=== PATIENT | female | born 1960 | race American Indian/Alaskan Native ===

== ENCOUNTER 2018-04-24 12:47 | Inpatient (IN) | payer BC, OTHER ==
[2018-04-24] MEDS ORDERED: ASPIRIN PO ONE (13:28)
[2018-04-24] MEDS ORDERED: NITROSTAT SL PRN (13:52)
[2018-04-24 14:17] LABS: Basophils # (Auto) 0.1 K/mm3 (0.0-0.1); Basophils % (Auto) 1.2 % (0.0-1.8); Eosinophils # (Auto) 0.2 K/mm3 (0.0-0.4); Eosinophils % (Auto) 4.8 % (0.0-4.3); Hematocrit 38.7 % (30.3-42.9); Hemoglobin 12.4 gm/dl (10.1-14.3); Lymphocytes # (Auto) 1.3 K/mm3 (1.2-5.4); Lymphocytes % (Auto) 29.4 % (13.4-35.0); Mean Corpuscular HGB Conc 32 % (30-34); Mean Corpuscular Hemoglobin 26 pg (28-32); Mean Corpuscular Volume 81 fl (79-97); Monocytes # (Auto) 0.6 K/mm3 (0.0-0.8); Monocytes % (Auto) 13.7 % (0.0-7.3); Platelet Count 271 K/mm3 (140-440); Red Blood Count 4.76 M/mm3 (3.65-5.03); Red Cell Distribution Width 15.4 % (13.2-15.2)
--- NOTE | 2018-04-24 14:26 | Emergency Department Report ---
ED Chest Pain HPI - General Chief Complaint: Dyspnea/Respdistress Stated Complaint: SOB Time Seen by Provider: 04/24/18 13:30 Source: patient, EMS Mode of arrival: Stretcher Limitations: No Limitations - History of Present Illness Initial Comments: Patient presents to the emergency department with a chief complaint of chest pain or shortness of breath that started last night. Patient states she feels like she cannot catch her breath. Patient does cause nausea but denies any vomiting. Also complains of sweating. Patient has a history of hypertension and a CVA in 2017 is still a smoker. MD Complaint: chest pain -: Sudden Onset: during rest Pain Location: substernal Pain Radiation: none Severity: moderate Severity scale (0 -10): 6 Quality: tightness Consistency: constant Improves With: nothing Worsens With: nothing Treatments Prior to Arrival: none - Related Data Home Medications Medication Instructions Recorded Confirmed Last Taken RX: Lisinopril [Zestril TAB] 40 mg PO QDAY 06/07/13 05/23/15 12/07/14 Previous Rx's Medication Instructions Recorded Last Taken Type RX: oxyCODONE /ACETAMINOPHEN 2 tab PO Q6HR PRN #30 tablet 04/27/14 12/07/14 Rx [Percocet 5/325 mg] RX: NIFEdipine [NIFEdipine XL] 60 mg PO QDAY #30 tab.er.24 12/08/14 Unknown Rx Allergies Allergy/AdvReac Type Severity Reaction Status Date / Time No Known Allergies Allergy Verified 11/02/13 12:38 Heart Score - HEART Score History: Moderately suspicious EKG: Non-specific Age: 45-65 Risk factors: 1-2 risk factors Troponin: 1-3x normal limit HEART Score: 5 ED Review of Systems ROS: Stated complaint: SOB Other details as noted in HPI Comment: All other systems reviewed and negative Constitutional: denies: chills, fever Eyes: denies: eye pain, eye discharge, vision change ENT: denies: ear pain, throat pain Respiratory: shortness of breath. denies: cough, wheezing Cardiovascular: chest pain. denies: palpitations Endocrine: no symptoms reported Gastrointestinal: denies: abdominal pain, nausea, diarrhea Genitourinary: denies: urgency, dysuria, discharge Musculoskeletal: denies: back pain, joint swelling, arthralgia Skin: denies: rash, lesions Neurological: denies: headache, weakness, paresthesias Psychiatric: denies: anxiety, depression Hematological/Lymphatic: denies: easy bleeding, easy bruising ED Past Medical Hx - Past Medical History Previous Medical History?: Yes Hx Hypertension: Yes Hx Congestive Heart Failure: No Hx Diabetes: No Hx Headaches / Migraines: Yes Hx Asthma: No Hx COPD: No Additional medical history: sleep apnea - Surgical History Past Surgical History?: Yes Additional Surgical History: tubal ligation. x 1 - Social History Smoking Status: Current Every Day Smoker Substance Use Type: None - Medications Home Medications: Home Medications Medication Instructions Recorded Confirmed Last Taken Type RX: Lisinopril [Zestril TAB] 40 mg PO QDAY 06/07/13 05/23/15 12/07/14 History RX: oxyCODONE /ACETAMINOPHEN 2 tab PO Q6HR PRN #30 tablet 04/27/14 05/23/15 Rx [Percocet 5/325 mg] RX: NIFEdipine [NIFEdipine XL] 60 mg PO QDAY #30 tab.er.24 12/08/14 05/23/15 Unknown Rx ED Physical Exam - General Limitations: No Limitations General appearance: alert, in no apparent distress - Head Head exam: Present: atraumatic, normocephalic - Eye Eye exam: Present: normal appearance, PERRL, EOMI - ENT ENT exam: Present: mucous membranes moist - Neck Neck exam: Present: normal inspection - Respiratory Respiratory exam: Present: normal lung sounds bilaterally. Absent: respiratory distress, wheezes, rales, rhonchi - Cardiovascular Cardiovascular Exam: Present: regular rate, normal rhythm. Absent: systolic murmur, diastolic murmur, rubs, gallop - GI/Abdominal GI/Abdominal exam: Present: soft, normal bowel sounds. Absent: distended, tenderness - Extremities Exam Extremities exam: Present: normal inspection - Back Exam Back exam: Present: normal inspection - Neurological Exam Neurological exam: Present: alert, oriented X3, CN II-XII intact. Absent: motor sensory deficit - Psychiatric Psychiatric exam: Present: normal affect, normal mood - Skin Skin exam: Present: warm, dry, intact, normal color. Absent: rash ED Course Vital Signs 04/24/18 04/24/18 04/24/18 13:13 13:14 13:24 Temperature 98.2 F 98.2 F Pulse Rate 76 76 72 Respiratory 15 15 23 Rate Blood Pressure 190/76 182/68 Blood Pressure 190/76 190/76 [Left] O2 Sat by Pulse 97 97 100 Oximetry 04/24/18 04/24/18 04/24/18 13:30 13:46 13:59 Temperature Pulse Rate 70 68 69 Respiratory 23 20 Rate Blood Pressure 176/76 164/78 164/78 Blood Pressure [Left] O2 Sat by Pulse 97 95 Oximetry 04/24/18 14:01 Temperature Pulse Rate 73 Respiratory 19 Rate Blood Pressure 156/77 Blood Pressure [Left] O2 Sat by Pulse 96 Oximetry GODFREY score - Godfrey Score Age > 65: (0) No Aspirin use within the Past 7 Days: (0) No 3 or more CAD Risk Factors: (1) Yes 2 or more Angina events in past 24 hrs: (0) No Known CAD with more than 50% Stenosis: (0) No Elevated Cardiac Markers: (0) No ST Deviation Greater than 0.5mm: (0) No GODFREY Score: 1 ED Medical Decision Making - Lab Data Result diagrams: 04/24/18 13:41 04/24/18 13:41 - EKG Data EKG shows normal: sinus rhythm Rate: normal - EKG Data Interpretation: LVH, other (V1 and V2 elevation; ST depressions in leads II, III , and aVF ) - Medical Decision Making There was a concern EKG for ST elevation in V1 and V2 with depressions in inferior leads but since the patient has a pre-existing history of LVH cardiology was contacted at 1:38pm for evaluation of EKG. Or telephone call was at 1348 and EKG was sent via text to cardiology at 1356 cardiology stated that EKG was not concerning for STEMI Patient receives aspirin Sublingual nitroglycerin completely relieved her chest pain and shortness of breath Discussed results with patient Critical care attestation.: If time is entered above; I have spent that time in minutes in the direct care of this critically ill patient, excluding procedure time. ED Disposition Clinical Impression: Chest pain Qualifiers: Chest pain type: unspecified Qualified Code(s): R07.9 - Chest pain, unspecified Disposition: OP ADMIT IP TO THIS HOSP Is pt being admited?: Yes Does the pt Need Aspirin: Yes Condition: Fair Instructions: Chest Pain (ED) Time of Disposition: 14:22
[2018-04-24 14:28] LABS: BUN/Creatinine Ratio 12; Blood Urea Nitrogen 12 mg/dL (7-17); Calcium 9.4 mg/dL (8.4-10.2); Hemolysis Index 2
[2018-04-24 14:30] LABS: Alanine Aminotransferase 7 units/L (7-56); Albumin 3.9 g/dL (3.9-5)
[2018-04-24 14:36] LABS: Bilirubin,Direct < 0.2 mg/dL (0-0.2)
--- NOTE | 2018-04-24 15:07 | History and Physical Report ---
History of Present Illness Chief complaint: My chest hurts History of present illness: 57 YO Female with MO, HTN, LUZ, Migraine headache, Nicotine Dependence presents to ED for evaluation. Pt states that she has experienced pain in her chest over the past 1 day with worsening symptoms over the past 6 hours. Pain is 6/10, substernal, crushing in nature, nonradiating, not worsened with exertion, not relieved with rest, relieved with Nitro, associated with shortness of breath and diaphoresis. EMS notified and patient transported to [facility] for further care and evaluation. Pt seen and evaluated in ED and found to have evidence of ACS and diastolic CHF. Pt admitted to telemetry, Cardiology consulted in ED. Pt denies fever, chills, Palpitations, NVD, Syncope, Trauma, BRBPR, Unintentional weight loss, night sweats, bone pain, or recent ill contacts. Past History Past Medical History: hypertension, migraines Past Surgical History: , Other (tubal ligation) Social history: single, smoking. denies: alcohol abuse, prescription drug abuse Family history: hypertension Medications and Allergies Allergies Allergy/AdvReac Type Severity Reaction Status Date / Time No Known Allergies Allergy Verified 11/02/13 12:38 Home Medications Medication Instructions Recorded Confirmed Last Taken Type Lisinopril [Zestril TAB] 40 mg PO QDAY 06/07/13 05/23/15 12/07/14 History oxyCODONE /ACETAMINOPHEN [Percocet 2 tab PO Q6HR PRN #30 tablet 04/27/1412/07/14 Rx 5/325 mg] NIFEdipine [NIFEdipine XL] 60 mg PO QDAY #30 tab.er.24 12/08/14 05/23/15 Unknown Rx Active Meds: Active Medications Nitroglycerin (Nitrostat) 0.4 mg SL .Q5MIN PRN PRN Reason: Chest Pain Last Admin: 04/24/18 13:59 Dose: 0.4 mg Review of Systems Constitutional: no weight loss, no weight gain, no fever, no chills Ears, nose, mouth and throat: no ear pain, no ear discharge, no tinnitis, no decreased hearing, no nose pain, no nasal congestion Breasts: no change in shape, no swelling, no mass Cardiovascular: chest pain, shortness of breath, no claudication, no decreased exercise tolerance Respiratory: no cough, no cough with sputum, no excessive sputum, no hemoptysis , no shortness of breath Gastrointestinal: no nausea, no vomiting, no diarrhea, no constipation Genitourinary Female: no pelvic pain, no flank pain, no menorrhagia, no dysuria , no urinary frequency, no urgency Rectal: no pain, no incontinence, no bleeding Musculoskeletal: no neck stiffness, no neck pain, no shooting arm pain, no arm numbness/tingling, no shooting leg pain, no leg numbness/tingling Integumentary: no rash, no pruritis, no redness, no sores, no wounds Neurological: no transient paralysis, no paralysis, no weakness, no parathesias , no numbness, no tingling, no seizures, no syncope Psychiatric: no anxiety, no memory loss, no change in sleep habits, no sleep disturbances, no insomnia, no hypersomnia, no change in appetite, no change in libido Endocrine: no cold intolerance, no heat intolerance, no polyphagia, no excessive thirst, no polydipsia, no polyuria, no nocturia Hematologic/Lymphatic: no easy bruising, no easy bleeding, no lymphadenopathy, no lymphedema Allergic/Immunologic: no urticaria, no allergic rhinitis, no persistent infections, no anaphylaxis, no angioedema Exam - Constitutional Vitals: Temp Pulse Resp BP Pulse Ox 98.2 F 73 19 156/77 96 04/24/18 13:14 04/24/18 14:01 04/24/18 14:01 04/24/18 14:01 04/24/18 14:01 General appearance: Present: mild distress, obese - EENT Eyes: Present: PERRL ENT: hearing intact, clear oral mucosa - Neck Neck: Present: supple, normal ROM - Respiratory Respiratory effort: normal Respiratory: bilateral: CTA - Cardiovascular Heart Sounds: Present: S1 & S2. Absent: rub, click - Extremities Extremities: pulses symmetrical, No edema Extremity abnormal: edema Peripheral Pulses: within normal limits - Abdominal General gastrointestinal: Present: soft, non-tender, non-distended, normal bowel sounds Female genitourinary: Present: normal - Integumentary Integumentary: Present: clear, warm, dry - Musculoskeletal Musculoskeletal: gait normal, strength equal bilaterally - Psychiatric Psychiatric: appropriate mood/affect, intact judgment & insight - Neurologic Neurologic: CNII-XII intact, moves all extremities Results - Labs CBC & Chem 7: 04/24/18 13:41 04/24/18 13:41 Labs: Abnormal lab results 04/24/18 04/24/18 Range/Units 13:41 13:41 WBC 4.4 L (4.5-11.0) K/mm3 MCH 26 L (28-32) pg RDW 15.4 H (13.2-15.2) % Sandoval % (Auto) 13.7 H (0.0-7.3) % Eos % (Auto) 4.8 H (0.0-4.3) % Sodium 134 L (137-145) mmol/L Glucose 128 H (65-100) mg/dL Assessment and Plan - Patient Problems (1) ACS (acute coronary syndrome) Status: Acute Plan to address problem: Admit to telemetry, serial cardiac enzymes, ekg, telemetry, cardiology consulted in ED, D dimer, CTA chest, morphine, supplemental oxygen, nitro, aspirin (2) Diastolic CHF Status: Acute Qualifiers: Heart failure chronicity: acute Qualified Code(s): I50.31 - Acute diastolic (congestive) heart failure Plan to address problem: Admit to telemetry, echo, cardiology consulted, strict I/O, monitor uop q shift , daily weight, afterload reduction, (3) Nicotine dependence unspecified, with withdrawal Status: Acute Qualifiers: Nicotine product type: cigarettes Qualified Code(s): F17.213 - Nicotine dependence, cigarettes, with withdrawal Plan to address problem: smoking cessation counseling, supportive care (4) Obesity hypoventilation syndrome Status: Acute Plan to address problem: NIPPV, supportive care, supplemental oxygen, nebulizer therapy. (5) DVT prophylaxis Status: Acute Plan to address problem: SCD to BLE while in bed.
[2018-04-24] MEDS ORDERED: SODIUM CHLORIDE FLUSH SYRINGE 10 ML IV PRN ×2 (15:10→15:17)
[2018-04-24] MEDS ORDERED: TYLENOL PO PRN (15:10)
[2018-04-24] MEDS ORDERED: ZOFRAN IV PRN (15:10)
[2018-04-24] MEDS ORDERED: PERCOCET 5/325 PO PRN (15:20)
--- NOTE | 2018-04-24 16:06 | XRay Report ---
FINAL REPORT EXAM: XR CHEST 1V AP HISTORY: SOB/chest pain TECHNIQUE: AP portable view of the chest PRIORS: None. FINDINGS: Lines, tubes, and devices: N/A Lungs and pleura: Trachea is normal in position. Lungs are clear of infiltrate, pleural effusion, vascular congestion, or pneumothorax. Cardiomediastinal silhouette: Heart is upper limits normal in size. Calcification of the aortic arch is noted. Other: Bony structures are intact. IMPRESSION: No acute cardiopulmonary process seen.
--- NOTE | 2018-04-24 17:08 | Cat Scan Report ---
FINAL REPORT EXAM: CT ANGIO CHEST HISTORY: SOB/CP TECHNIQUE: Enhanced CT of the chest at 2.5 mm axial intervals following a pulmonary embolism protocol. Coronal and sagittal imaging were also obtained. Coronal oblique MIP projections were obtained. Contrast: Intravenous contrast given PRIORS: None. FINDINGS: There is no evidence for pulmonary embolism in the main pulmonary artery, right and left pulmonary arteries or their major distributions. However, CT does not exclude distal pulmonary emboli. Otherwise, the lung parenchyma are expanded and clear with no evidence for parenchymal nodules, infiltrates, congestion, or pleural effusion. There is no evidence for mediastinal, hilar, or axillary adenopathy. Cardiovascular structures are within normal limits. No evidence for ventricular chamber enlargement is seen. There is a normal variant in vascular anatomy with the left common carotid artery originating from the innominate artery rather than the aortic arch. Images through the lung bases include the upper abdomen which show no abnormalities of the visualized abdominal viscera. Bony structures demonstrate no focal abnormalities. IMPRESSION: No evidence for pulmonary embolism. Negative CT of the chest.
[2018-04-24] MEDS: PROCARDIA XL PO SCH (21:44)
[2018-04-24] MEDS: SODIUM CHLORIDE FLUSH SYRINGE 10 ML IV SCH (21:45)
[2018-04-25] MEDS ORDERED: APRESOLINE IV PRN (01:12)
[2018-04-25] MEDS ORDERED: LEXISCAN IV ONE ×2 (08:24→08:27)
[2018-04-25] MEDS ORDERED: TYLENOL ONE (08:55)
[2018-04-25] MEDS ORDERED: PROCARDIA XL PO SCH (10:00)
[2018-04-25] MEDS ORDERED: ZESTRIL PO SCH (10:00)
[2018-04-25] MEDS ORDERED: HALFPRIN EC PO SCH (10:00)
--- NOTE | 2018-04-25 10:39 | Consultation ---
History of Present Illness Consult date: 04/25/18 Requesting physician: SHAYLA WAHL Consult reason: chest pain History of present illness: The pt is a 57 YO female with a past medical history significant for HTN, CVA and tobacco use. She is previously unknown to our practice. She presented with complaints of chest pain for 2 days with worsening for approx 6 hours prior to arrival. She describes the pain as an intermittent, midsternal pressure which has no clear aggravating or alleviating factors. The pain was associated with some SOB. She denies any palpitations, n/v, diaphoresis, dizziness or syncope. She denies any prior cardiac issues, including CAD, AMI or HF. Past History Past Medical History: hypertension, migraines, stroke Past Surgical History: , Other (tubal ligation) Social history: single, smoking. denies: alcohol abuse, prescription drug abuse Family history: hypertension Medications and Allergies Allergies Allergy/AdvReac Type Severity Reaction Status Date / Time No Known Allergies Allergy Verified 11/02/13 12:38 Home Medications Medication Instructions Recorded Confirmed Last Taken Type Lisinopril [Zestril TAB] 40 mg PO QDAY 06/07/13 04/24/18 12/07/14 History Aspirin [Aspirin TAB] 325 mg PO QDAY 04/24/18 04/24/18 Unknown History AtorvaSTATin [Lipitor] 10 mg PO QHS 04/24/18 04/24/18 Unknown History NIFEdipine [Nifedipine ER] 30 mg PO DAILY 04/24/18 04/24/18 Unknown History traZODone [Desyrel] 50 mg PO QHS 04/24/18 04/24/18 Unknown History Active Meds: Active Medications Acetaminophen (Tylenol) 650 mg PO Q4H PRN PRN Reason: Pain MILD(1-3)/Fever >100.5/JEAN Last Admin: 04/25/18 08:53 Dose: 650 mg Aspirin (Halfprin Ec) 81 mg PO QDAY LUISA Atorvastatin Calcium (Lipitor) 40 mg PO QHS LUISA Hydralazine HCl (Apresoline) 5 mg IV Q6H PRN PRN Reason: francoise blood pressure Last Admin: 04/25/18 01:35 Dose: 5 mg Lisinopril (Zestril) 40 mg PO QDAY LUISA Nifedipine (Procardia Xl) 60 mg PO QDAY LUISA Nifedipine (Procardia Xl) 60 mg PO QDAY [facility] Last Admin: 04/24/18 21:44 Dose: 60 mg Nitroglycerin (Nitrostat) 0.4 mg SL .Q5MIN PRN PRN Reason: Chest Pain Last Admin: 04/24/18 13:59 Dose: 0.4 mg Ondansetron HCl (Zofran) 4 mg IV Q8H PRN PRN Reason: Nausea And Vomiting Oxycodone/Acetaminophen (Percocet 5/325) 2 tab PO Q6HR PRN PRN Reason: Pain Sodium Chloride (Sodium Chloride Flush Syringe 10 Ml) 10 ml IV BID [facility] Last Admin: 04/24/18 21:45 Dose: 10 ml Sodium Chloride (Sodium Chloride Flush Syringe 10 Ml) 10 ml IV PRN PRN PRN Reason: LINE FLUSH Sodium Chloride (Sodium Chloride Flush Syringe 10 Ml) 10 ml IV PRN PRN PRN Reason: LINE FLUSH Review of Systems Constitutional: no weight loss, no weight gain, no fever, no chills, no sweats Ears, nose, mouth and throat: no ear pain, no nose pain, no sinus pressure, no sinus pain Cardiovascular: chest pain, shortness of breath, high blood pressure, no orthopnea, no palpitations, no rapid/irregular heart beat, no edema, no syncope , no lightheadedness, no dyspnea on exertion, no leg edema Respiratory: shortness of breath, no cough, no dyspnea on exertion, no congestion, no wheezing, no pain on inspiration Gastrointestinal: no abdominal pain, no nausea, no vomiting, no diarrhea, no constipation, no change in bowel habits Genitourinary Female: no pelvic pain, no flank pain, no dysuria, no urinary frequency, no urgency Musculoskeletal: no neck stiffness, no neck pain, no shooting arm pain, no arm numbness/tingling, no low back pain, no shooting leg pain, no leg numbness/ tingling, no redness of joints Integumentary: no rash, no pruritis, no redness, no sores, no wounds Neurological: no head injury, no paralysis, no weakness, no parathesias, no numbness, no tingling, no seizures, no syncope Psychiatric: no anxiety Endocrine: no cold intolerance, no heat intolerance Hematologic/Lymphatic: no easy bruising, no easy bleeding, no lymphadenopathy Allergic/Immunologic: no urticaria, no wheezing Physical Examination Vital Signs Temp Pulse Resp BP Pulse Ox 98.2 F 76 15 190/76 97 04/24/18 13:13 04/24/18 13:13 04/24/18 13:13 04/24/18 13:13 04/24/18 13:13 General appearance: no acute distress HEENT: Positive: PERRL, Normocephaly, Mucus Membranes Moist Neck: Positive: neck supple, trachea midline Cardiac: Positive: Reg Rate and Rhythm, S1/S2 Lungs: Positive: clear to auscultation Neuro: Positive: Grossly Intact, Cranial Nerve 2-12 Intact Abdomen: Positive: Soft. Negative: Tender Skin: Positive: Clear. Negative: Rash, Wound Musculoskeletal: No Fluid Collection, No Pain, Normal Range of Motion Extremities: Absent: edema Results 04/24/18 13:41 04/24/18 13:41 Cardiac Enzymes 04/24/18 Range/Units 13:45 AST 10 (5-40) units/L CBC 04/24/18 Range/Units 13:41 WBC 4.4 L (4.5-11.0) K/mm3 RBC 4.76 (3.65-5.03) M/mm3 Hgb 12.4 (10.1-14.3) gm/dl Hct 38.7 (30.3-42.9) % Plt Count 271 (140-440) K/mm3 Lymph # 1.3 (1.2-5.4) K/mm3 [place] # 0.6 (0.0-0.8) K/mm3 Eos # 0.2 (0.0-0.4) K/mm3 Baso # 0.1 (0.0-0.1) K/mm3 Comprehensive Metabolic Panel 04/24/18 04/24/18 Range/Units 13:41 13:45 Sodium 134 L (137-145) mmol/L Potassium 4.0 (3.6-5.0) mmol/L Chloride 100.3 (98-107) mmol/L Carbon Dioxide 24 (22-30) mmol/L BUN 12 (7-17) mg/dL Creatinine 1.0 (0.7-1.2) mg/dL Glucose 128 H (65-100) mg/dL Calcium 9.4 (8.4-10.2) mg/dL Direct Bilirubin < 0.2 (0-0.2) mg/dL Indirect Bilirubin 0.1 mg/dL AST 10 (5-40) units/L ALT 7 (7-56) units/L Alkaline Phosphatase 47 (35-129) units/L Total Protein 7.2 (6.3-8.2) g/dL Albumin 3.9 (3.9-5) g/dL - Imaging and Cardiology EKG: report reviewed, image reviewed EKG interpretations - Telemetry EKG Rhythm: Sinus Rhythm - EKG Sinus rhythms and dysrhythmias: sinus rhythm Assessment and Plan DDimer elevated - chest CTA negative for PE. S/p lexiscan MPI stress test this AM which was negative. Can consider echo as OP. Recommend further optimization of anti-hypertensive regimen per primary. Pt may discharge home from cardiology standpoint. Recommend follow up in our office with Dr. Hernandes within 2 weeks of hospital discharge ([phone]). The patient has been seen in conjunction with Dr. Hernandes who agrees with the assessment and plan of care. - Patient Problems (1) Chest pain Current Visit: Yes Status: Acute Qualifiers: Chest pain type: unspecified Qualified Code(s): R07.9 - Chest pain, unspecified (2) Uncontrolled hypertension Current Visit: Yes Status: Chronic (3) History of CVA (cerebrovascular accident) Current Visit: Yes Status: Chronic (4) Tobacco use Current Visit: Yes Status: Chronic
[2018-04-25] MEDS: PROCARDIA XL PO SCH (10:51)
[2018-04-25] MEDS: SODIUM CHLORIDE FLUSH SYRINGE 10 ML IV SCH (12:53)
--- NOTE | 2018-04-25 13:36 | Discharge Summary ---
Providers - Providers Date of Admission: 04/24/18 15:11 Date of discharge: 04/25/18 Attending physician: CALVIN ARREDONDO 04/24/18 Consult to Cardiac Rehabilitation [CONS] Routine Reason For Exam: Phase I 04/24/18 15:17 Consult to Cardiology [CONS] Routine Consulting Provider: JOSE JUAN CALLAHAN Reason For Exam: acs Primary care physician: MACHINE [employer]ICE Hospitalization Condition: Fair Hospital course: The pt is a 57 YO female with a past medical history significant for HTN, CVA and tobacco use presented with complaints of chest pain for 2 days with worsening for approx 6 hours prior to arrival. her DDimer elevated - chest CTA negative for PE. S/p lexiscan MPI stress test this AM which was negative. She had further optimization of anti-hypertensive regimen . Pt was cleared for discharge home from cardiology standpoint. She was Recommend to follow up in with Dr. Hernandes within 2 weeks of hospital discharge ([phone]). Discharge diagnosis; (1) Chest pain, likely GERD Current Visit: Yes Status: Acute Qualifiers: Chest pain type: unspecified Qualified Code(s): R07.9 - Chest pain, unspecified (2) Uncontrolled hypertension Current Visit: Yes Status: Chronic (3) History of CVA (cerebrovascular accident) Current Visit: Yes Status: Chronic (4) Tobacco use Current Visit: Yes Status: Chronic (5) Sleep apnea on CPAP Current Visit: Yes Status: Chronic Disposition: DC-01 TO HOME OR SELFCARE Time spent for discharge: 34 minutes Core Measure Documentation - Core Measures Any of the following diagnoses?: none Exam - Constitutional Vitals: Temp Pulse Resp BP Pulse Ox 97.5 F L 80 16 169/70 100 04/25/18 05:14 04/25/18 08:58 04/25/18 09:52 04/25/18 08:58 04/25/18 05:14 General appearance: Present: no acute distress, obese - EENT Eyes: Present: PERRL ENT: hearing intact, clear oral mucosa - Neck Neck: Present: supple, normal ROM - Respiratory Respiratory effort: normal Respiratory: bilateral: CTA - Cardiovascular Heart Sounds: Present: S1 & S2. Absent: rub, click - Extremities Extremities: pulses symmetrical, No edema Peripheral Pulses: within normal limits - Abdominal General gastrointestinal: Present: soft, non-tender, non-distended, normal bowel sounds - Integumentary Integumentary: Present: clear, warm, dry - Musculoskeletal Musculoskeletal: gait normal, strength equal bilaterally - Psychiatric Psychiatric: appropriate mood/affect, intact judgment & insight - Neurologic Neurologic: CNII-XII intact, moves all extremities Plan Activity: advance as tolerated Weight Bearing Status: Weight Bear as Tolerated Diet: low fat Follow up with: PRIMARY CARE, [Primary Care Provider] - 3-5 Days Prescriptions: AtorvaSTATin [Lipitor] 40 mg PO QHS #30 tablet hydrALAZINE [Apresoline TAB] 50 mg PO Q8HR #90 tablet NIFEdipine XL [Procardia Xl] 60 mg PO QDAY #30 tablet Pantoprazole [Protonix] 40 mg PO QDAY #30 tablet
[2018-04-25] MEDS ORDERED: ASPIRIN PO SCH (14:00)
[2018-04-25] MEDS ORDERED: APRESOLINE PO SCH (15:00)
[2018-04-25 17:13] VITALS: BP 155/80
[2018-04-25] MEDS ORDERED: DESYREL PO SCH (22:00)
--- NOTE | 2018-04-25 23:13 | Treadmill Report ---
NUCLEAR CARDIAC IMAGING REPORT INDICATION FOR PROCEDURE: Chest pain. Informed consent was obtained. Vasodilator stress was achieved with the intravenous administration of 0.4 mg of Lexiscan per protocol. Rest and stress nuclear cardiac imaging were performed following the intravenous administration of 10 and 28 mCi of technetium 99m Myoview per protocol. Images were obtained in a 180-degree arc from 45 degrees CARBALLO to 45 degrees LPO. After data acquisition and reconstruction, the images were processed and reoriented into the vertical long, horizontal long, and horizontal short axis slices. A polar color map of the horizontal short axis slices was generated and reviewed. The rotating planar images reviewed in cinematic format on the computer console. Gated SPECT imaging demonstrates a post-stress left ventricular ejection fraction of 67% with normal wall motion. Myocardial perfusion imaging demonstrates no significant cavity change between stress and rest. No significant stress-induced reversible perfusion defects are seen. Nuclear cardiac imaging demonstrates grossly normal post-stress left ventricular systolic function with no significant evidence for myocardial ischemia or necrosis. JOB# [id number] NAYELY/MATT
== END 2018-04-25 21:45 | disposition home or self-care (01) | DRG 391 ==
LOC: ED 12:47 → 4A 15:11
PROVIDERS: ADMIT Internal Medicine; ATTEND Internal Medicine
PROC: 5A09357 Assistance with Respiratory Ventilation, Less than 24 Consecutive Hours, Continuous Positive Airway Pressure (ICD-10-PCS; principal; 2018-04-24)
DX: K21.9 Gastro-esophageal reflux disease without esophagitis (principal); I50.31 Acute diastolic (congestive) heart failure; I24.9 Acute ischemic heart disease, unspecified; Z68.41 Body mass index [BMI] 40.0-44.9, adult; F17.213 Nicotine dependence, cigarettes, with withdrawal; E66.2 Morbid (severe) obesity with alveolar hypoventilation; I11.0 Hypertensive heart disease with heart failure; G47.33 Obstructive sleep apnea (adult) (pediatric); G43.909 Migraine, unspecified, not intractable, without status migrainosus; Z86.73 Personal history of transient ischemic attack (TIA), and cerebral infarction without residual deficits; Z99.81 Dependence on supplemental oxygen; Z98.51 Tubal ligation status; Z82.49 Family history of ischemic heart disease and other diseases of the circulatory system; Z79.82 Long term (current) use of aspirin; Z79.899 Other long term (current) drug therapy; Z71.6 Tobacco abuse counseling
CPT/HCPCS: 36415; 71045; 71275; 78452; 80048; 80074; 83880; 84484; 85025; 85379; 93005; 93010; 93017; 93306; 94660; A9502; J0360; J2785; Q9967

== ENCOUNTER 2019-04-25 18:18 | Emergency (ER) | payer MEDICAID, SELFPAY ==
--- NOTE | 2019-04-25 18:35 | Event Note ---
ED Screening Note Date of service: 04/25/19 Time: 18:31 ED Screening Note: This is a 58 y.o. F. that presents to the ER with anxiety and headache. PMH HTN Patient states she haven't taken medication today. Current smoker This initial assessment/diagnostic orders/clinical plan/treatment(s) is/are subject to change based on patients health status, clinical progression and re- assessment by fellow clinical providers in the ED. Further treatment and workup at subsequent clinical providers discretion. Patient/guardian urged not to elope from the ED as their condition may be serious if not clinically assessed and managed. Initial orders include: Labs
[2019-04-25 19:28] LABS: Basophils # (Auto) 0.1 K/mm3 (0.0-0.1); Eosinophils # (Auto) 0.2 K/mm3 (0.0-0.4); Eosinophils % (Auto) 3.6 % (0.0-4.3); Hematocrit 37.6 % (30.3-42.9); Hemoglobin 12.5 gm/dl (10.1-14.3); Lymphocytes # (Auto) 1.9 K/mm3 (1.2-5.4); Lymphocytes % (Auto) 31.2 % (13.4-35.0); Mean Corpuscular HGB Conc 33 % (30-34); Mean Corpuscular Volume 82 fl (79-97); Monocytes # (Auto) 0.8 K/mm3 (0.0-0.8); Monocytes % (Auto) 13.3 % (0.0-7.3); Platelet Count 282 K/mm3 (140-440); Red Blood Count 4.58 M/mm3 (3.65-5.03)
[2019-04-25 19:49] LABS: BUN/Creatinine Ratio 12; Blood Urea Nitrogen 12 mg/dL (7-17); Calcium 9.5 mg/dL (8.4-10.2); Hemolysis Index 11
--- NOTE | 2019-04-25 23:42 | Cat Scan Report ---
CT HEAD WITHOUT CONTRAST INDICATION: headache TECHNIQUE: Axial slices were obtained through the head. Coronal and sagittal reformatted images were obtained. COMPARISON: CT scan dated 04/27/2014 FINDINGS: There is no intracranial hemorrhage or extra-axial fluid collection. Ventricles, basilar cisterns, an d sulci appear within normal limits for age. There is no mass lesion or midline shift. No acute ravinder torial infarct is identified. There is microangiopathic change in the periventricular white matter. S mall calcifications are noted in the right basal ganglia unchanged from previous study. Bone windows demonstrate no acute osseous abnormality. There is an air-fluid level in the left aspect of the sphenoid sinus and there is opacification of the right ethmoid air cell. TECHNIQUE: All CT scans at this facility use dose modulation, iterative reconstruction, automated ex posure control, weight based dosing, when appropriate, to reduce radiation dose to as low as reasonab ly achievable. IMPRESSION: 1. No intracranial hemorrhage is seen. There is no mass effect. There is sphenoid and ethmoid air itzel l sinus disease. There is microangiopathic change. Signer Name: rEick Bautista MD Signed: 04/25/2019 11:38 PM Workstation Name: [id number]
[2019-04-26 00:10] VITALS: BP 201/98
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
== END 2019-04-26 01:28 | disposition home or self-care (01) ==
LOC: ED 18:18
DX: F41.9 Anxiety disorder, unspecified (principal); R51 Headache; I10 Essential (primary) hypertension; V49.49XA Driver injured in collision with other motor vehicles in traffic accident, initial encounter; Y93.89 Activity, other specified; Y92.488 Other paved roadways as the place of occurrence of the external cause; Y99.8 Other external cause status
CPT/HCPCS: 36415; 70450; 80048; 85025

== ENCOUNTER 2019-04-26 18:04 | Emergency (ER) | payer MEDICAID ==
[2019-04-26 18:17] VITALS: BP 196/86
--- NOTE | 2019-04-26 18:22 | Event Note ---
ED Screening Note Date of service: 04/26/19 Time: 18:20 ED Screening Note: This is a 58 y.o. F. that presents to the ER with headache and elevated blood pressure. Patient states she took blood pressure medicine and continue to have the same symptoms. Reports is better than yesterday. Denies visual changes, chest pain, dizziness, or palpitations. This initial assessment/diagnostic orders/clinical plan/treatment(s) is/are subject to change based on patients health status, clinical progression and re- assessment by fellow clinical providers in the ED. Further treatment and workup at subsequent clinical providers discretion. Patient/guardian urged not to elope from the ED as their condition may be serious if not clinically assessed and managed. Initial orders include:
== END 2019-04-26 20:50 | disposition left against medical advice (07) ==
LOC: ED 18:04
DX: R51 Headache (principal); R03.0 Elevated blood-pressure reading, without diagnosis of hypertension; Z53.21 Procedure and treatment not carried out due to patient leaving prior to being seen by health care provider

== ENCOUNTER 2019-05-20 18:01 | Emergency (ER) | payer MEDICAID ==
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
== END 2019-05-20 22:42 | disposition home or self-care (01) ==
LOC: ED 18:01
DX: L03.113 Cellulitis of right upper limb (principal)
CPT/HCPCS: 99281

== ENCOUNTER 2019-12-18 00:48 | Observation (INO) | payer MEDICARE ==
[2019-12-18] MEDS ORDERED: MORPHINE 4 MG/1 ML INJ IV ONE (01:09)
[2019-12-18] MEDS ORDERED: dexAMETHasone 4 MG/ML VIAL IV ONE (01:09)
[2019-12-18] MEDS ORDERED: diphenhydrAMINE 50 MG/ML VIAL IV ONE (01:09)
[2019-12-18] MEDS ORDERED: ONDANSETRON 4 MG/2 ML INJ IV ONE (01:09)
[2019-12-18] MEDS ORDERED: SODIUM CHLORIDE 0.9% 1000 ML 1,000 ML IV ONE (01:09)
--- NOTE | 2019-12-18 01:11 | Emergency Department Report ---
ED Headache HPI - General Chief Complaint: Headache Stated Complaint: MIGRAINE Time Seen by Provider: 12/18/19 01:08 Source: patient Exam Limitations: no limitations - History of Present Illness Initial Comments: Patient is a 59-year-old female that presents emergency room with complaints of a migraine. Patient states that her migraine started yesterday. Patient states her pain is worsening. States that this feels like a migraine but the pain is more intense. Patient states she is having light sensitivity. Patient dates she is having an aura and noise sensitivity. Patient states the pain is a 10 out of 10. Patient states the pain is worse with movement and better with rest. Patient denies neck stiffness. Patient denies fever and chills. Patient denies blurry vision. Patient denies dizziness. Patient denies chest pain or shortness of breath. Patient denies recent travel. Patient denies recent international travel. Patient denies exposure to the novel coronavirus. Patient denies sick contacts. Patient denies fever and chills. Patient denies cough. Patient denies diarrhea. Patient denies coming in contact with anybody with symptoms of the novel coronavirus. Timing/Duration: 24 hours Quality: severe, throbbing Head Injury Location: frontal Recent Head Trauma: chronic headaches Modifying Factors: improves with: exposure to light, rest, other (Sound sensitivity) Associated Symptoms: denies: confusion, fatigue, facial pain, fever/chills, flushing, loss of consciousness, nausea/vomiting, nasal congestion, nasal drainage, numbness in legs/feet, rash, seizures, sinus infection, stiff neck, vision changes, weakness Allergies/Adverse Reactions: Allergies No Known Allergies Allergy (Verified 04/26/19 18:26) Home Medications: Ambulatory Orders lisinopriL [Zestril TAB] 40 mg PO QDAY 06/07/13 Aspirin 325 mg PO QDAY 04/24/18 traZODone [Desyrel] 50 mg PO QHS 04/24/18 AtorvaSTATin [Lipitor] 40 mg PO QHS #30 tablet 04/25/18 NIFEdipine XL [Procardia Xl] 60 mg PO QDAY #30 tablet 04/25/18 Pantoprazole [Protonix] 40 mg PO QDAY #30 tablet 04/25/18 hydrALAZINE [Apresoline TAB] 50 mg PO Q8HR #90 tablet 04/25/18 Sulfamethoxazole/Trimethoprim [Bactrim DS TAB] 1 each PO BID 7 Days #14 tablet 05/20/19 predniSONE [Deltasone] 50 mg PO QDAY #5 tab 05/20/19 traMADoL [Ultram] 50 mg PO Q6HR PRN #10 tablet 05/20/19 ED Review of Systems ROS: Stated complaint: MIGRAINE Other details as noted in HPI Constitutional: denies: chills, fever Eyes: denies: eye pain, eye discharge, vision change ENT: denies: ear pain, throat pain Respiratory: denies: cough, shortness of breath, wheezing Cardiovascular: denies: chest pain, palpitations Endocrine: no symptoms reported Gastrointestinal: denies: abdominal pain, nausea, diarrhea Genitourinary: denies: urgency, dysuria, discharge Musculoskeletal: denies: back pain, joint swelling, arthralgia Skin: denies: rash, lesions Neurological: headache. denies: weakness, paresthesias Psychiatric: denies: anxiety, depression Hematological/Lymphatic: denies: easy bleeding, easy bruising ED Past Medical Hx - Past Medical History Previous Medical History?: Yes Hx Hypertension: Yes Hx Congestive Heart Failure: No Hx Diabetes: No Hx Headaches / Migraines: Yes Hx Asthma: No Hx COPD: No Additional medical history: sleep apnea - Surgical History Past Surgical History?: Yes Additional Surgical History: tubal ligation. x 1 - Family History Family history: no significant - Social History Smoking Status: Current Every Day Smoker Substance Use Type: Alcohol - Medications Home Medications: Home Medications Medication Instructions Recorded Confirmed Last Taken Type lisinopriL [Zestril TAB] 40 mg PO QDAY 06/07/13 04/24/18 12/07/14 History Aspirin 325 mg PO QDAY 04/24/18 04/24/18 Unknown History traZODone [Desyrel] 50 mg PO QHS 04/24/18 04/24/18 Unknown History AtorvaSTATin [Lipitor] 40 mg PO QHS #30 tablet 04/25/18 Unknown Rx NIFEdipine XL [Procardia Xl] 60 mg PO QDAY #30 tablet 04/25/18 Unknown Rx Pantoprazole [Protonix] 40 mg PO QDAY #30 tablet 04/25/18 Unknown Rx hydrALAZINE [Apresoline TAB] 50 mg PO Q8HR #90 tablet 04/25/18 Unknown Rx Sulfamethoxazole/Trimethoprim 1 each PO BID 7 Days #14 tablet 05/20/19 Unknown Rx [Bactrim DS TAB] predniSONE [Deltasone] 50 mg PO QDAY #5 tab 05/20/19 Unknown Rx traMADoL [Ultram] 50 mg PO Q6HR PRN #10 tablet 05/20/19 Unknown Rx ED Physical Exam - General Limitations: No Limitations General appearance: alert, in no apparent distress - Head Head exam: Present: atraumatic, normocephalic - Eye Eye exam: Present: normal appearance, PERRL Pupils: Present: normal accommodation - ENT ENT exam: Present: mucous membranes moist - Neck Neck exam: Present: normal inspection - Respiratory Respiratory exam: Present: normal lung sounds bilaterally. Absent: respiratory distress - Cardiovascular Cardiovascular Exam: Present: regular rate, normal rhythm. Absent: systolic murmur, diastolic murmur, rubs, gallop - GI/Abdominal GI/Abdominal exam: Present: soft, normal bowel sounds - Extremities Exam Extremities exam: Present: normal inspection - Back Exam Back exam: Present: normal inspection - Neurological Exam Neurological exam: Present: alert, oriented X3 - Psychiatric Psychiatric exam: Present: normal affect, normal mood - Skin Skin exam: Present: warm, dry, intact, normal color. Absent: rash ED Course Vital Signs 12/18/19 12/18/19 12/18/19 00:54 01:08 01:16 Temperature 98.1 F Pulse Rate 82 80 81 Respiratory 18 20 14 Rate Blood Pressure 232/150 266/129 Blood Pressure [Left] O2 Sat by Pulse 100 100 100 Oximetry 12/18/19 12/18/19 12/18/19 01:32 02:48 02:50 Temperature Pulse Rate 79 Respiratory 16 16 Rate Blood Pressure 266/129 Blood Pressure 263/127 [Left] O2 Sat by Pulse 99 95 100 Oximetry 12/18/19 12/18/19 12/18/19 03:00 03:01 03:16 Temperature Pulse Rate 78 79 92 H Respiratory 21 22 Rate Blood Pressure 263/127 263/127 237/102 Blood Pressure [Left] O2 Sat by Pulse 99 100 Oximetry 12/18/19 12/18/19 12/18/19 03:52 04:13 04:27 Temperature Pulse Rate 109 H 89 85 Respiratory 21 Rate Blood Pressure 204/91 204/95 237/102 Blood Pressure [Left] O2 Sat by Pulse 100 Oximetry - Reevaluation(s) Reevaluation #1: Patient's blood pressure still significantly elevated. Patient states she is out of her blood pressure medications. Patient was given 20 mg hydralazine. 12/18/19 02:53 Reevaluation #2: Patient's blood pressure still elevated. Patient will be given clonidine and Lopressor. 12/18/19 03:24 Reevaluation #3: Blood pressure still extremely elevated and patient is still having a headache. Patient will be placed on a nicardipine drip. 12/18/19 04:27 Reevaluation #4: I discussed all results with patient. I discussed plan of care with patient. Patient agrees with plan of care and admission. Patient to be admitted to the hospitalist service. Patient resting in bed. Patient has already received clonidine, Lopressor, hydralazine and her blood pressure is currently 228/107. Patient was will be placed on nicardipine drip 12/18/19 04:36 - Consultations Consultation #1: Hospitalist consulted for admission. Hospitalist to admit patient. 12/18/19 04:36 ED Medical Decision Making - Lab Data Result diagrams: 12/18/19 01:25 12/18/19 01:25 - Radiology Data Radiology results: report reviewed CT HEAD WITHOUT CONTRAST INDICATION: MAIN: Headache hypertension TECHNIQUE: Axial slices were obtained through the head. Coronal and sagittal reformatted images were obtained. COMPARISON: 04/25/2019 FINDINGS: There is no intracranial hemorrhage or extra-axial fluid collection. Ventricles, basilar cisterns, and sulci appear within normal limits for age. There is no mass lesion or midline shift. No acute territorial infarct is identified. There is microangiopathic change in the periventricular white matter which appears stable. Small lacunar infarcts are noted in the thalami Bone windows demonstrate no acute osseous abnormality. Mucous retention cyst is noted in the sphenoid sinus there is mild mucosal thickening in a few ethmoid air cells. TECHNIQUE: All CT scans at this facility use dose modulation, iterative reconstruction, automated exposure control, weight based dosing, when appropriate, to reduce radiation dose to as low as reasonably achievable. IMPRESSION: 1. No acute intracranial abnormality. There is microangiopathic change. - Medical Decision Making Patient is a 59-year-old female that presents emergency room with complaints of a severe headache and migraine. Patient's migraine pain was worse than her no rmal migraines. Patient had a CTA done due to her severe headache and it was negative for acute finding. Patient's blood pressure also found to be elevated. Patient was given multiple blood pressure medications and her blood pressures continue to be high. Patient was then placed on a nicardipine drip which improved her blood pressure. Patient's was given hydralazine, clonidine, Lopressor and her blood pressure remained high. Patient's labs are unremarkable except for a mild renal insufficiency. Patient admitted to the hospitalist service. - Differential Diagnosis Hypertensive emergency, uncontrolled bp, migraine, intractable headache Critical Care Time: Yes Critical care time in (mins) excluding proc time.: 45 Critical care attestation.: If time is entered above; I have spent that time in minutes in the direct care of this critically ill patient, excluding procedure time. Critical Care Time: 45 minutes ED Disposition Clinical Impression: Hypertensive urgency, Uncontrolled hypertension, Renal insufficiency Migraine Qualifiers: Migraine type: unspecified Status migrainosus presence: with status migrainosus Intractability: intractable Qualified Code(s): G43.911 - Migraine, unspecified, intractable, with status migrainosus Intractable headache Qualifiers: Headache type: unspecified Headache chronicity pattern: acute headache Qualified Code(s): R51 - Headache Disposition: -09 OP ADMIT IP TO THIS HOSP Is pt being admited?: Yes Does the pt Need Aspirin: No Condition: Critical Time of Disposition: 04:29
[2019-12-18 01:37] LABS: Basophils % (Auto) 0.2 % (0.0-1.8); Eosinophils # (Auto) 0.2 K/mm3 (0.0-0.4); Eosinophils % (Auto) 3.5 % (0.0-4.3); Hematocrit 41.4 % (30.3-42.9); Hemoglobin 13.2 gm/dl (10.1-14.3); Lymphocytes # (Auto) 1.9 K/mm3 (1.2-5.4); Lymphocytes % (Auto) 31.3 % (13.4-35.0); Mean Corpuscular HGB Conc 32 % (30-34); Mean Corpuscular Volume 82 fl (79-97); Monocytes # (Auto) 0.7 K/mm3 (0.0-0.8); Monocytes % (Auto) 11.9 % (0.0-7.3); Platelet Count 281 K/mm3 (140-440); Red Blood Count 5.04 M/mm3 (3.65-5.03); Red Cell Distribution Width 15.3 % (13.2-15.2)
--- NOTE | 2019-12-18 01:51 | Cat Scan Report ---
CT HEAD WITHOUT CONTRAST INDICATION: MAIN: Headache hypertension TECHNIQUE: Axial slices were obtained through the head. Coronal and sagittal reformatted images were obtained. COMPARISON: 04/25/2019 FINDINGS: There is no intracranial hemorrhage or extra-axial fluid collection. Ventricles, basilar cisterns, an d sulci appear within normal limits for age. There is no mass lesion or midline shift. No acute ravinder torial infarct is identified. There is microangiopathic change in the periventricular white matter wh ich appears stable. Small lacunar infarcts are noted in the thalami Bone windows demonstrate no acute osseous abnormality. Mucous retention cyst is noted in the sphenoid sinus there is mild mucosal thickening in a few ethmoid air cells. TECHNIQUE: All CT scans at this facility use dose modulation, iterative reconstruction, automated ex posure control, weight based dosing, when appropriate, to reduce radiation dose to as low as reasonab ly achievable. IMPRESSION: 1. No acute intracranial abnormality. There is microangiopathic change. Signer Name: Erick Bautista MD Signed: 12/18/2019 1:46 AM Workstation Name: [id number]
[2019-12-18 02:00] LABS: Albumin 3.9 g/dL (3.9-5); Calcium 9.7 mg/dL (8.4-10.2)
[2019-12-18] MEDS ORDERED: hydrALAZINE 20 MG/1 ML INJ IV ONE (02:53)
[2019-12-18 03:32] LABS: Erythrocyte Sedimentation Rate 8 mm/Hr (0-20)
[2019-12-18] MEDS ORDERED: METOPROLOL TARTRATE 5 MG/5 ML INJ IV ONE (03:40)
[2019-12-18] MEDS ORDERED: cloNIDine 0.2 MG TAB PO ONE (03:40)
[2019-12-18 04:31] LABS: Bacteria,Urine 1+ /HPF (Negative); Bilirubin,Urine NEG (Negative); Blood,Urine NEG (Negative); Color,Urine Straw (Yellow); Protein,Urine <15 mg/dL mg/dL (Negative); Urobilinogen,Urine < 2.0 mg/dL (<2.0)
[2019-12-18] MEDS ORDERED: niCARdipine 50 MG in SODIUM CHLORIDE 0.9% 250ML 230 ML IV SCH (05:00)
[2019-12-18] MEDS ORDERED: MORPHINE 2 MG/1 ML INJ IV PRN (05:41)
[2019-12-18] MEDS ORDERED: ACETAMINOPHEN 325 MG TAB PO PRN (05:50)
[2019-12-18] MEDS ORDERED: ONDANSETRON 4 MG/2 ML INJ IV PRN (05:50)
--- NOTE | 2019-12-18 05:54 | History and Physical Report ---
History of Present Illness History of present illness: 59-year-old woman with a history of hypertension, migraine comes emergency room for evaluation. Patient complains of a headache, right temporal and inguinal back of her head which she stated started last night. Describes the pain as pressure-like sensation, constant, intensity of 5/10, no radiation, relieved with pain medication given in the emergency room. Admits to nausea, photophobi a. She took [id number] headache relief medicine without any improvement at home. Patient has not taken her antihypertensive in over 1 week. Patient was given several antihypertensive in the ER without any significant improvement in her blood pressure, she was started on a Cardene drip. Patient will be admitted for hypertensive urgency, migraine Review Of Systems: Constitutional: no weight loss, fever, chills Ears, eyes, nose, mouth and throat: no nasal congestion, no nasal discharge, no sinus pressure, blurry vision, diplopia Neck: No neck pain or rigidity. Cardiovascular: No palpitations, chest pain Respiratory: No shortness of breath, cough Gastrointestinal: No hematochezia Genitourinary : no dysuria, frequency Musculoskeletal: no muscle ache , joint pain Integumentary: no rash, no pruritis Neurological: no parathesias, focal weakness Endocrine: no cold or heat intolerance, no polyuria or polydipsia Hematologic/Lymphatic: no easy bruising, no easy bleeding, no gland swelling Allergic/Immunologic: no urticaria, no angioedema. PAST MEDICAL HISTORY: hypertension, migraine PAST SURGICAL HISTORY: , tubal ligation SOCIAL HISTORY: Denies alcohol, tobacco, drugs FAMILY HISTORY: Hypertension Medications and Allergies Allergies Allergy/AdvReac Type Severity Reaction Status Date / Time No Known Allergies Allergy Verified 04/26/19 18:26 Home Medications Medication Instructions Recorded Confirmed Last Taken Type lisinopriL [Zestril TAB] 40 mg PO QDAY 06/07/13 04/24/18 12/07/14 History Aspirin 325 mg PO QDAY 04/24/18 04/24/18 Unknown History traZODone [Desyrel] 50 mg PO QHS 04/24/18 04/24/18 Unknown History AtorvaSTATin [Lipitor] 40 mg PO QHS #30 tablet 04/25/18 Unknown Rx NIFEdipine XL [Procardia Xl] 60 mg PO QDAY #30 tablet 04/25/18 Unknown Rx Pantoprazole [Protonix] 40 mg PO QDAY #30 tablet 04/25/18 Unknown Rx hydrALAZINE [Apresoline TAB] 50 mg PO Q8HR #90 tablet 04/25/18 Unknown Rx Sulfamethoxazole/Trimethoprim 1 each PO BID 7 Days #14 tablet 05/20/19 Unknown Rx [Bactrim DS TAB] predniSONE [Deltasone] 50 mg PO QDAY #5 tab 05/20/19 Unknown Rx traMADoL [Ultram] 50 mg PO Q6HR PRN #10 tablet 05/20/19 Unknown Rx Active Meds: Active Medications Enoxaparin Sodium (Enoxaparin) 40 mg SUB-Q QAM LUISA Nicardipine HCl 50 mg/ Sodium (Chloride) 250 mls @ 25 mls/hr IV TITR LUISA; Protocol Last Admin: 12/18/19 05:41 Dose: 5 mg/hr, 25 mls/hr Documented by: Morphine Sulfate (Morphine) 2 mg IV Q4H PRN PRN Reason: Pain, Moderate (4-6) Exam - Physical Exam Narrative exam: Gen. appearance: Patient lying in bed, no apparent distress HEENT: Normocephalic, atraumatic, pupils equally round and reactive to light, extraocular movement intact, and no sclericterus,. No JVD or thyromegaly or nodule,neck supple, no carotid bruit ,mucous membranes moist, no exudate or erythema Heart: S1, S2, regular rate and rhythm Lungs: Clear bilaterally, breathing comfortable Abdomen: Positive bowel sounds, nontender, nondistended, no organomegaly Extremity: no edema, cyanosis, clubbing Skin: No rash, nodules, warm, dry Neuro: Cranial nerves II to XII intact, speech is fluent, moves extremities, sensory intact - Constitutional Vitals: Temp Pulse Resp BP Pulse Ox 98.1 F 85 21 237/102 100 12/18/19 00:54 12/18/19 04:27 12/18/19 04:27 12/18/19 04:27 12/18/19 04:27 Results - Labs CBC & Chem 7: 12/18/19 01:25 12/18/19 01:25 Labs: Abnormal lab results 12/18/19 12/18/19 Range/Units 01:25 01:25 RBC 5.04 H (3.65-5.03) M/mm3 MCH 26 L (28-32) pg RDW 15.3 H (13.2-15.2) % [place]rill % (Auto) 11.9 H (0.0-7.3) % BUN 19 H (7-17) mg/dL Creatinine 1.3 H (0.7-1.2) mg/dL Glucose 118 H (65-100) mg/dL ALT 6 L (7-56) units/L - Imaging and Cardiology EKG: image reviewed CT Scan - head: report reviewed Assessment and Plan Assessment Hypertensive urgency/headache Continue Cardene drip Start IV morphine, consult critical care DVT prophylaxis
[2019-12-18] MEDS ORDERED: traMADol 50 MG TAB PO PRN (09:04)
--- NOTE | 2019-12-18 09:16 | Progress Note ---
Assessment and Plan Assessment and plan: --Hypertensive emergency; On Cardene drip, titrate blood pressures to less than 140 systolic Resume multiple home antihypertensives CT head without contrast no acute abnormality Closely monitor --Acute kidney injury; mild Due to hypertensive nephropathy Partly vasomotor nephropathy Avoid nephrotoxins, monitor renal function --Hypertensive nephropathy Optimal blood pressure control, gentle hydration Avoid nephrotoxins, nephrology consult if needed --History of CVA; with residual weakness Supportive care --Ongoing tobacco use; Smoking cessation counseling, spent 17 minutes Risks and consequences of ongoing tobacco use counseled And discussed with the patient. Advised Nicotine patch as needed --Morbid obesity; BMI 39 Patient strongly advised diet modification Lifestyle changes, exercise as tolerated And weight reduction when medically stable Patient verbalized understanding --DVT prophylaxis; Lovenox Monitor closely and adjust management as needed Patient is admitted to ICU Plan of care reviewed with the patient and her nurse Critical care time 45 minutes History Interval history: Patient seen and examined this morning at the bedside Patient's chart, list of medications, tests and reports reviewed Admitted with headache and hypertensive emergency Started on Cardene drip. Patient continues to have mild headache significantly improved since admission Blood pressures reasonable level Denies chest pain, nausea vomiting Vital signs noted Hospitalist Physical - Constitutional Vitals: Temp Pulse Resp BP Pulse Ox 99.3 F 91 H 23 134/76 96 12/18/19 08:00 12/18/19 07:30 12/18/19 07:30 12/18/19 07:30 12/18/19 08:51 General appearance: Present: mild distress, well-nourished, obese - EENT Eyes: Present: PERRL, EOM intact - Neck Neck: Present: supple, normal ROM - Respiratory Respiratory effort: normal Respiratory: bilateral: diminished, negative: rales, rhonchi, wheezing - Cardiovascular Rhythm: regular Heart Sounds: Present: S1 & S2 - Extremities Extremities: no ischemia, No edema - Abdominal General gastrointestinal: soft, non-tender, non-distended, normal bowel sounds - Integumentary Integumentary: Present: clear, warm - Psychiatric Psychiatric: appropriate mood/affect, cooperative - Neurologic Neurologic: moves all extremities GODFREY score - Godfrey Score Age > 65: (0) No Aspirin use within the Past 7 Days: (0) No 3 or more CAD Risk Factors: (1) Yes 2 or more Angina events in past 24 hrs: (0) No Known CAD with more than 50% Stenosis: (0) No Elevated Cardiac Markers: (0) No ST Deviation Greater than 0.5mm: (0) No GODFREY Score: 1 Results - Labs CBC & Chem 7: 12/18/19 01:25 12/18/19 01:25 Labs: Laboratory Last Values WBC 6.1 K/mm3 (4.5-11.0) 12/18/19 01:25 RBC 5.04 M/mm3 (3.65-5.03) H 12/18/19 01:25 Hgb 13.2 gm/dl (10.1-14.3) 12/18/19 01:25 Hct 41.4 % (30.3-42.9) 12/18/19 01:25 MCV 82 fl (79-97) 12/18/19 01:25 MCH 26 pg (28-32) L 12/18/19 01:25 MCHC 32 % (30-34) 12/18/19 01:25 RDW 15.3 % (13.2-15.2) H 12/18/19 01:25 Plt Count 281 K/mm3 (140-440) 12/18/19 01:25 Lymph % (Auto) 31.3 % (13.4-35.0) 12/18/19 01:25 [place] % (Auto) 11.9 % (0.0-7.3) H 12/18/19 01:25 Eos % (Auto) 3.5 % (0.0-4.3) 12/18/19 01:25 Baso % (Auto) 0.2 % (0.0-1.8) 12/18/19 01:25 Lymph # 1.9 K/mm3 (1.2-5.4) 12/18/19 01:25 [place] # 0.7 K/mm3 (0.0-0.8) 12/18/19 01:25 Eos # 0.2 K/mm3 (0.0-0.4) 12/18/19 01:25 Baso # 0.0 K/mm3 (0.0-0.1) 12/18/19 01:25 Seg Neutrophils % 53.1 % (40.0-70.0) 12/18/19 01:25 Seg Neutrophils # 3.2 K/mm3 (1.8-7.7) 12/18/19 01:25 ESR 8 mm/Hr (0-20) 12/18/19 01:25 Sodium 140 mmol/L (137-145) 12/18/19 01:25 Potassium 4.3 mmol/L (3.6-5.0) 12/18/19 01:25 Chloride 101.5 mmol/L (98-107) 12/18/19 01:25 Carbon Dioxide 24 mmol/L (22-30) 12/18/19 01:25 Anion Gap 19 mmol/L 12/18/19 01:25 BUN 19 mg/dL (7-17) H 12/18/19 01:25 Creatinine 1.3 mg/dL (0.7-1.2) H 12/18/19 01:25 Estimated GFR 50 ml/min 12/18/19 01:25 BUN/Creatinine Ratio 15 % 12/18/19 01:25 Glucose 118 mg/dL (65-100) H 12/18/19 01:25 Calcium 9.7 mg/dL (8.4-10.2) 12/18/19 01:25 Total Bilirubin 0.30 mg/dL (0.1-1.2) 12/18/19 01:25 AST 12 units/L (5-40) 12/18/19 01:25 ALT 6 units/L (7-56) L 12/18/19 01:25 Alkaline Phosphatase 52 units/L (35-129) 12/18/19 01:25 Total Protein 7.8 g/dL (6.3-8.2) 12/18/19 01:25 Albumin 3.9 g/dL (3.9-5) 12/18/19 01:25 Albumin/Globulin Ratio 1.0 % 12/18/19 01:25 Urine Color Straw (Yellow) 12/18/19 03:45 Urine Turbidity Clear (Clear) 12/18/19 03:45 Urine pH 6.0 (5.0-7.0) 12/18/19 03:45 Ur Specific [place] 1.011 (1.003-1.030) 12/18/19 03:45 Urine Protein <15 mg/dl mg/dL (Negative) 12/18/19 03:45 Urine Glucose (UA) Neg mg/dL (Negative) 12/18/19 03:45 Urine Ketones Tr mg/dL (Negative) 12/18/19 03:45 Urine Blood Neg (Negative) 12/18/19 03:45 Urine Nitrite Neg (Negative) 12/18/19 03:45 Urine Bilirubin Neg (Negative) 12/18/19 03:45 Urine Urobilinogen < 2.0 mg/dL (<2.0) 12/18/19 03:45 Ur Leukocyte Esterase Neg (Negative) 12/18/19 03:45 Urine WBC (Auto) 0.0 /HPF (0.0-6.0) 12/18/19 03:45 Urine RBC (Auto) 1.0 /HPF (0.0-6.0) 12/18/19 03:45 U Epithel Cells (Auto) < 1.0 /HPF (0-13.0) 12/18/19 03:45 Urine Bacteria (Auto) 1+ /HPF (Negative) 12/18/19 03:45 Castillo/IV: IV Catheter Type [Right Peripheral IV Antecubital] Active Medications - Current Medications Current Medications: Generic Name Dose Route Start Last Admin Trade Name Freq PRN Reason Stop Dose Admin Acetaminophen 650 mg 12/18/19 05:50 Tylenol PO Q4H PRN Pain MILD(1-3)/Fever >100.5/JEAN Aspirin 325 mg 12/18/19 10:00 Aspirin PO QDAY [facility] Atorvastatin Calcium 40 mg 12/18/19 22:00 Lipitor PO QHS [facility] Enoxaparin Sodium 40 mg 12/18/19 10:00 Enoxaparin SUB-Q QAM [facility] Hydralazine HCl 50 mg 12/18/19 14:00 Apresoline PO Q8HR [facility] Hydralazine HCl 50 mg 12/18/19 09:07 Apresoline PO 12/18/19 09:08 ONCE ONE Nicardipine HCl 50 mg/ Sodium 250 mls @ 25 mls/hr 12/18/19 05:00 12/18/19 08 :44 Chloride IV 2.5 mg/hr TITR LUISA 12.5 mls/hr Titration Protocol 5 MG/HR Lisinopril 40 mg 12/18/19 10:00 Zestril PO QDAY [facility] Morphine Sulfate 2 mg 12/18/19 05:41 Morphine IV Q4H PRN Pain, Moderate (4-6) Nifedipine 60 mg 12/18/19 10:00 Procardia Xl PO QDAY LUISA Ondansetron HCl 4 mg 12/18/19 05:50 Zofran IV Q8H PRN Nausea And Vomiting Pantoprazole Sodium 40 mg 12/18/19 10:00 Protonix PO QDAY LUISA Sodium Chloride 10 ml 12/18/19 10:00 Sodium Chloride Flush Syringe 10 Ml IV BID LUISA Sodium Chloride 10 ml 12/18/19 05:50 Sodium Chloride Flush Syringe 10 Ml IV PRN PRN LINE FLUSH Tramadol HCl 50 mg 12/18/19 09:04 Ultram PO Q6HR PRN Pain, Moderate (4-6) Trazodone HCl 50 mg 12/18/19 22:00 Desyrel PO QHS [facility]
[2019-12-18] MEDS ORDERED: hydrALAZINE 25 MG TAB PO ONE (09:30)
[2019-12-18] MEDS: PANTOPRAZOLE 40 MG TAB PO SCH (09:40)
[2019-12-18] MEDS: ASPIRIN 325 MG TAB PO SCH (09:40)
[2019-12-18] MEDS: LISINOPRIL 40 MG TAB PO SCH (09:41)
[2019-12-18] MEDS: ENOXAPARIN 40 MG/0.4 ML INJ SUB-Q SCH (09:41)
[2019-12-18] MEDS: NIFEdipine XL 60 MG TAB PO SCH (09:41)
--- NOTE | 2019-12-18 10:29 | Consultation ---
History of Present Illness - Reason for Consult Consult date: 12/18/19 Hypertensive Emergency Requesting physician: AKASH PIERSON - History of Present Illness 59 y/o female with known HTN presented with migraine type headache. Found to be very hypertensive with systolics >200. Started on Cardene drip and transition to ICU. Now off drip with normal BP. mental state is ok. No neurologic deficits that I can find on exam. Per patient, may have ran out of a few home meds. Past History Past Medical History: hypertension, hyperlipidemia Past Surgical History: No surgical history Social history: no significant social history Medications and Allergies Allergies Allergy/AdvReac Type Severity Reaction Status Date / Time No Known Allergies Allergy Verified 04/26/19 18:26 Home Medications Medication Instructions Recorded Confirmed Last Taken Type lisinopriL [Zestril TAB] 40 mg PO QDAY 06/07/13 12/18/19 12/07/14 History Aspirin 325 mg PO QDAY 04/24/18 12/18/19 Unknown History traZODone [Desyrel] 50 mg PO QHS 04/24/18 12/18/19 Unknown History AtorvaSTATin [Lipitor] 40 mg PO QHS #30 tablet 04/25/18 12/18/19 Unknown Rx NIFEdipine XL [Procardia Xl] 60 mg PO QDAY #30 tablet 04/25/18 12/18/19 Unknown Rx Pantoprazole [Protonix] 40 mg PO QDAY #30 tablet 04/25/18 12/18/19 Unknown Rx hydrALAZINE [Apresoline TAB] 50 mg PO Q8HR #90 tablet 04/25/18 12/18/19 Unknown Rx traMADoL [Ultram] 50 mg PO Q6HR PRN #10 tablet 05/20/19 12/18/19 Unknown Rx Active Meds: Active Medications Acetaminophen (Tylenol) 650 mg PO Q4H PRN PRN Reason: Pain MILD(1-3)/Fever >100.5/JEAN Aspirin (Aspirin) 325 mg PO QDAY [facility] Last Admin: 12/18/19 09:40 Dose: 325 mg Documented by: Atorvastatin Calcium (Lipitor) 40 mg PO QHS [facility] Enoxaparin Sodium (Enoxaparin) 40 mg SUB-Q QAM [facility] Last Admin: 12/18/19 09:41 Dose: 40 mg Documented by: Hydralazine HCl (Apresoline) 50 mg PO Q8HR [facility] Nicardipine HCl 50 mg/ Sodium (Chloride) 250 mls @ 25 mls/hr IV TITR LUISA; P rotocol Last Titration: 12/18/19 08:44 Dose: 2.5 mg/hr, 12.5 mls/hr Documented by: Lisinopril (Zestril) 40 mg PO QDAY [facility] Last Admin: 12/18/19 09:41 Dose: 40 mg Documented by: Morphine Sulfate (Morphine) 2 mg IV Q4H PRN PRN Reason: Pain, Moderate (4-6) Nifedipine (Procardia Xl) 60 mg PO QDAY [facility] Last Admin: 12/18/19 09:41 Dose: 60 mg Documented by: Ondansetron HCl (Zofran) 4 mg IV Q8H PRN PRN Reason: Nausea And Vomiting Pantoprazole Sodium (Protonix) 40 mg PO QDAY [facility] Last Admin: 12/18/19 09:40 Dose: 40 mg Documented by: Sodium Chloride (Sodium Chloride Flush Syringe 10 Ml) 10 ml IV BID [facility] Last Admin: 12/18/19 09:42 Dose: 10 ml Documented by: Sodium Chloride (Sodium Chloride Flush Syringe 10 Ml) 10 ml IV PRN PRN PRN Reason: LINE FLUSH Tramadol HCl (Ultram) 50 mg PO Q6HR PRN PRN Reason: Pain, Moderate (4-6) Trazodone HCl (Desyrel) 50 mg PO QHS [facility] Review of Systems All systems: negative Exam - Constitutional Vitals: Temp Pulse Resp BP Pulse Ox 99.3 F 82 19 130/73 97 12/18/19 08:43 12/18/19 09:41 12/18/19 09:10 12/18/19 09:41 12/18/19 09:10 General appearance: Present: no acute distress, well-nourished - EENT Eyes: Present: PERRL, EOM intact ENT: hearing intact - Neck Neck: Present: supple, normal ROM - Respiratory Respiratory effort: normal Respiratory: bilateral: CTA - Cardiovascular Rhythm: regular Heart Sounds: Present: S1 & S2 - Extremities Extremities: no ischemia, pulses intact - Abdominal General gastrointestinal: Present: soft, non-tender, normal bowel sounds Female genitourinary: Present: deferred - Rectal Rectal Exam: deferred Results - Labs CBC & Chem 7: 12/18/19 01:25 12/18/19 01:25 Labs: Abnormal lab results 12/18/19 12/18/19 Range/Units 01:25 01:25 RBC 5.04 H (3.65-5.03) M/mm3 MCH 26 L (28-32) pg RDW 15.3 H (13.2-15.2) % [place] % (Auto) 11.9 H (0.0-7.3) % BUN 19 H (7-17) mg/dL Creatinine 1.3 H (0.7-1.2) mg/dL Glucose 118 H (65-100) mg/dL ALT 6 L (7-56) units/L - Imaging and Cardiology CT Scan - head: report reviewed Assessment and Plan 59 y/o female admittted with hypertensive Emergency and acute kidney injury (presumed) 1. Off cardene now 2. Continue PO home regimen 3. Ok for transfer to floor 4. Will need CM consult to make sure meds are affordable and regimen does not need to be changed. CCT 31 minutes.
[2019-12-18] MEDS: hydrALAZINE 25 MG TAB PO SCH ×2 (13:31→21:29)
[2019-12-18] MEDS ORDERED: traZODone 50 MG TAB PO SCH (22:00)
[2019-12-19 04:45] LABS: Basophils # (Auto) 0.1 K/mm3 (0.0-0.1); Basophils % (Auto) 0.7 % (0.0-1.8); Hematocrit 37.7 % (30.3-42.9); Hemoglobin 12.3 gm/dl (10.1-14.3); Lymphocytes % (Auto) 10.9 % (13.4-35.0); Mean Corpuscular HGB Conc 33 % (30-34); Mean Corpuscular Volume 81 fl (79-97); Monocytes # (Auto) 0.7 K/mm3 (0.0-0.8); Monocytes % (Auto) 7.7 % (0.0-7.3); Platelet Count 284 K/mm3 (140-440); Red Blood Count 4.65 M/mm3 (3.65-5.03); Red Cell Distribution Width 15.2 % (13.2-15.2)
[2019-12-19 05:05] LABS: BUN/Creatinine Ratio 25; Blood Urea Nitrogen 27 mg/dL (7-17); Calcium 9.6 mg/dL (8.4-10.2); Hemolysis Index 8
[2019-12-19] MEDS: hydrALAZINE 25 MG TAB PO SCH ×2 (05:51→16:03)
--- NOTE | 2019-12-19 08:50 | Progress Note ---
Assessment and Plan 59 y/o female admittted with hypertensive Emergency and acute kidney injury (presumed) 1. No acute pulmonary issues. Stable on room air 2. Renal function improving 3. BP stable Will see PRN Subjective Date of service: 12/19/19 Interval history: Successful transfer out of unit on yesterday. BP remains stable. No pulmonary issues. Objective - Constitutional Vitals: Vital Signs - 12hr 12/18/19 12/18/19 12/18/19 21:29 21:53 23:10 Temperature 98.0 F Pulse Rate 86 66 Respiratory 18 Rate Blood Pressure 138/78 141/68 O2 Sat by Pulse 98 98 Oximetry 12/19/19 12/19/19 12/19/19 00:28 04:00 04:46 Temperature 98.0 F Pulse Rate 74 72 73 Respiratory 18 Rate Blood Pressure 130/61 O2 Sat by Pulse 100 Oximetry 12/19/19 05:51 Temperature Pulse Rate 73 Respiratory Rate Blood Pressure 130/61 O2 Sat by Pulse Oximetry - Labs CBC & Chem 7: 12/19/19 04:11 12/19/19 04:11 Labs: Abnormal lab results 12/19/19 12/19/19 Range/Units 04:11 04:11 MCH 27 L (28-32) pg Lymph % (Auto) 10.9 L (13.4-35.0) % [place] % (Auto) 7.7 H (0.0-7.3) % Lymph # 1.0 L (1.2-5.4) K/mm3 Seg Neutrophils % 80.7 H (40.0-70.0) % Carbon Dioxide 20 L (22-30) mmol/L BUN 27 H (7-17) mg/dL Glucose 149 H (65-100) mg/dL Medications & Allergies - Medications Allergies/Adverse Reactions: Allergies No Known Allergies Allergy (Verified 04/26/19 18:26) Home Medications: Home Medications Medication Instructions Recorded Confirmed Last Taken Type lisinopriL [Zestril TAB] 40 mg PO QDAY 06/07/13 12/18/19 12/07/14 History Aspirin 325 mg PO QDAY 04/24/18 12/18/19 Unknown History traZODone [Desyrel] 50 mg PO QHS 04/24/18 12/18/19 Unknown History AtorvaSTATin [Lipitor] 40 mg PO QHS #30 tablet 04/25/18 12/18/19 Unknown Rx NIFEdipine XL [Procardia Xl] 60 mg PO QDAY #30 tablet 04/25/18 12/18/19 Unknown Rx Pantoprazole [Protonix] 40 mg PO QDAY #30 tablet 04/25/18 12/18/19 Unknown Rx hydrALAZINE [Apresoline TAB] 50 mg PO Q8HR #90 tablet 04/25/18 12/18/19 Unknown Rx traMADoL [Ultram] 50 mg PO Q6HR PRN #10 tablet 05/20/19 12/18/19 Unknown Rx Active Medications: Generic Name Dose Route Start Last Admin Trade Name Freq PRN Reason Stop Dose Admin Acetaminophen 650 mg 12/18/19 05:50 Tylenol PO Q4H PRN Pain MILD(1-3)/Fever >100.5/JEAN Aspirin 325 mg 12/18/19 10:00 12/18/19 09:40 Aspirin PO 325 mg QDAY [facility] Administration Atorvastatin Calcium 40 mg 12/18/19 22:00 12/18/19 21:29 Lipitor PO 40 mg QHS [facility] Administration Enoxaparin Sodium 40 mg 12/18/19 10:00 12/18/19 09:41 Enoxaparin SUB-Q 40 mg QAM [facility] Administration Hydralazine HCl 50 mg 12/18/19 14:00 12/19/19 05:51 Apresoline PO 50 mg Q8HR [facility] Administration Lisinopril 40 mg 12/18/19 10:00 12/18/19 09:41 Zestril PO 40 mg QDAY [facility] Administration Morphine Sulfate 2 mg 12/18/19 05:41 Morphine IV Q4H PRN Pain, Moderate (4-6) Nifedipine 60 mg 12/18/19 10:00 12/18/19 09:41 Procardia Xl PO 60 mg QDAY [facility] Administration Ondansetron HCl 4 mg 12/18/19 05:50 Zofran IV Q8H PRN Nausea And Vomiting Pantoprazole Sodium 40 mg 12/18/19 10:00 12/18/19 09:40 Protonix PO 40 mg QDAY [facility] Administration Tramadol HCl 50 mg 12/18/19 09:04 Ultram PO Q6HR PRN Pain, Moderate (4-6) Trazodone HCl 50 mg 12/18/19 22:00 12/18/19 21:29 Desyrel PO 50 mg QHS [facility] Administration
[2019-12-19] MEDS: ASPIRIN 325 MG TAB PO SCH (11:12)
[2019-12-19] MEDS: ENOXAPARIN 40 MG/0.4 ML INJ SUB-Q SCH (11:12)
[2019-12-19] MEDS: LISINOPRIL 40 MG TAB PO SCH (11:12)
[2019-12-19] MEDS: NIFEdipine XL 60 MG TAB PO SCH (11:12)
[2019-12-19] MEDS: PANTOPRAZOLE 40 MG TAB PO SCH (11:12)
--- NOTE | 2019-12-19 11:44 | Discharge Summary ---
Providers - Providers Date of Admission: 12/18/19 08:26 Date of discharge: 12/19/19 Attending physician: ALEJO YOO 12/18/19 05:50 Consult to Physician [CONS] Routine Comment: Spoke with the answering service @ [phone] Consulting Provider: RABIA MCKENZIE Physician Instructions: Reason For Exam: cc Primary care physician: [employer] Hospitalization Condition: Critical Disposition: DC-01 TO HOME OR SELFCARE Time spent for discharge: 32 min Core Measure Documentation - Palliative Care Palliative Care/ Comfort Measures: Not Applicable - Core Measures Any of the following diagnoses?: none Exam - Constitutional Vitals: Temp Pulse Resp BP Pulse Ox 98.4 F 79 18 125/90 98 12/19/19 09:58 12/19/19 11:12 12/19/19 09:58 12/19/19 11:12 12/19/19 09:58 General appearance: Present: no acute distress, well-nourished - EENT Eyes: Present: PERRL, EOM intact - Neck Neck: Present: supple, normal ROM - Respiratory Respiratory effort: normal Respiratory: bilateral: diminished, negative: rales, rhonchi, wheezing - Cardiovascular Rhythm: regular Heart Sounds: Present: S1 & S2 - Extremities Extremities: no ischemia, No edema - Abdominal General gastrointestinal: Present: soft, non-tender, non-distended, normal bowel sounds - Integumentary Integumentary: Present: clear, warm - Musculoskeletal Musculoskeletal: strength equal bilaterally - Psychiatric Psychiatric: appropriate mood/affect, cooperative - Neurologic Neurologic: moves all extremities Plan Activity: advance as tolerated, fall precautions Diet: other (cardiac diet) Additional Instructions: If you have any chest pain or shortness of breath contact MD or go to emergency room. Strongly advised to comply with medications and diet and follow-up visits Follow up with: PRIMARY CARE,MD [Primary Care Provider] - 3-5 Days
[2019-12-19 12:48] VITALS: BP 161/85
== END 2019-12-19 15:35 | disposition home or self-care (01) ==
LOC: SUATTDRO 00:48 → ED 00:48 → INTOOBSV 08:26 → CC1 08:26 → 4A 16:56
PROVIDERS: ADMIT Internal Medicine; ATTEND Internal Medicine
DX: I16.0 Hypertensive urgency (principal); N17.9 Acute kidney failure, unspecified; R51 Headache; G43.911 Migraine, unspecified, intractable, with status migrainosus; E78.5 Hyperlipidemia, unspecified; I12.9 Hypertensive chronic kidney disease with stage 1 through stage 4 chronic kidney disease, or unspecified chronic kidney disease; N18.9 Chronic kidney disease, unspecified; E66.01 Morbid (severe) obesity due to excess calories; Z86.73 Personal history of transient ischemic attack (TIA), and cerebral infarction without residual deficits; Z79.82 Long term (current) use of aspirin; Z79.899 Other long term (current) drug therapy; Z68.39 Body mass index [BMI] 39.0-39.9, adult
CPT/HCPCS: 36415; 70450; 80048; 80053; 81001; 85025; 85652; 96365; 96366; 96372; 96375; 99291; A9270; G0378; J0360; J1100; J1200; J1650; J2270; J2405; J7030; J7050